=== PATIENT | male | born 1995 | race Caucasian/White ===

== ENCOUNTER 2022-10-07 15:30 | Outpatient (RCR) | payer OTHER, SELFPAY | END 2023-02-04 23:59 | disposition home or self-care (01) | PROVIDERS: PCP Family Medicine; Visit Provider Family Medicine | DX: M25.512 Pain in left shoulder (principal); G25.89 Other specified extrapyramidal and movement disorders; S46.912S Strain of unspecified muscle, fascia and tendon at shoulder and upper arm level, left arm, sequela; S46.911A Strain of unspecified muscle, fascia and tendon at shoulder and upper arm level, right arm, initial encounter; M25.511 Pain in right shoulder; R29.3 Abnormal posture; R53.1 Weakness; Z51.89 Encounter for other specified aftercare | CPT/HCPCS: 97110; 97162 ==

== ENCOUNTER 2023-03-12 13:45 | Outpatient (RCR) | payer OTHER, SELFPAY | END 2023-05-06 14:26 | disposition home or self-care (01) | PROVIDERS: PCP Student in an Organized Health Care Education/Training Program; Visit Provider Student in an Organized Health Care Education/Training Program | DX: S46.912S Strain of unspecified muscle, fascia and tendon at shoulder and upper arm level, left arm, sequela (principal); S46.911A Strain of unspecified muscle, fascia and tendon at shoulder and upper arm level, right arm, initial encounter; M25.511 Pain in right shoulder; M25.512 Pain in left shoulder; R29.3 Abnormal posture; R29.898 Other symptoms and signs involving the musculoskeletal system; Z51.89 Encounter for other specified aftercare | CPT/HCPCS: 97110; 97140; 97161 ==